=== PATIENT | male | born 1995 | race Caucasian/White ===

== ENCOUNTER 2018-10-26 21:43 | Emergency (ER) | payer BC ==
[2018-10-27] MEDS ORDERED: ACETAMINOPHEN TAB 500 MG TAB PO STA (00:32)
[2018-10-27] MEDS ORDERED: IBUPROFEN 600 MG TAB PO STA (00:32)
--- NOTE | 2018-10-27 01:07 | XR ---
EXAMINATION TYPE: XR chest 2V DATE OF EXAM: 10/27/2018 COMPARISON: EXAMINATION TYPE: XR chest 2V DATE OF EXAM: 10/27/2018 COMPARISON: NONE HISTORY: Cough TECHNIQUE: 2 views FINDINGS: Heart and mediastinum are normal. Lungs are clear. Diaphragm is normal. Bony thorax is inta ct pulmonary vascularity is normal. IMPRESSION: Normal chest
--- NOTE | 2018-10-27 01:12 | ED ---
URI HPI - General Source: patient, RN notes reviewed, old records reviewed Mode of arrival: ambulatory Limitations: no limitations <Ayah Klein - Last Filed: 10/29/18 01:29> <Angélica Forrest P - Last Filed: 10/31/18 01:56> - General Chief Complaint: Upper Respiratory Infection Stated Complaint: Cough Time Seen by Provider: 10/27/18 00:29 - History of Present Illness Initial Comments: Patient is a 23 year old male with 3 days of headache, sore throat, body aches , cough, and congestion. PAtient reports high fever today and felt dizzy. He has had no vomiting. No history of sick contacts he is aware of. HE is generally healthy. (Ayah Klein) - Related Data Previous Rx's Medication Instructions Recorded Azithromycin [Zithromax Z-pack] 0 mg PO DIRECTED #6 tab 09/06/15 Cetirizine HCl/Pseudoephedrine 1 each PO BID #30 tab.er.12h 09/06/15 [Zyrtec-D Tablet] Acetaminophen Tab [Tylenol Tab] 1,000 mg PO Q6HR #30 tablet 10/27/18 Ibuprofen 600 mg PO TID #20 tablet 10/27/18 Promethazine/Dextromethorphan 5 ml PO TID #120 ml 10/27/18 [Phenergan DM Syrup] Allergies Allergy/AdvReac Type Severity Reaction Status Date / Time amoxicillin trihydrate Allergy Vomiting Verified 10/26/18 22:07 [From Augmentin] potassium clavulanate Allergy Vomiting Verified 10/26/18 22:07 [From Augmentin] Review of Systems ROS Other: All systems not noted in ROS Statement are negative. <Ayah Klein - Last Filed: 10/29/18 01:29> ROS Other: All systems not noted in ROS Statement are negative. <Angélica Forrest P - Last Filed: 10/31/18 01:56> ROS Statement: Those systems with pertinent positive or pertinent negative responses have been documented in the HPI. Past Medical History Past Medical History: No Reported History History of Any Multi-Drug Resistant Organisms: None Reported Additional Past Surgical History / Comment(s): WRIST SURGERY Past Psychological History: No Psychological Hx Reported Smoking Status: Former smoker Past Alcohol Use History: None Reported Past Drug Use History: None Reported <Ayah Klein - Last Filed: 10/29/18 01:29> General Exam Limitations: no limitations General appearance: alert, in no apparent distress Head exam: Present: atraumatic, normocephalic, normal inspection Eye exam: Present: normal appearance, PERRL, EOMI. Absent: scleral icterus, conjunctival injection, periorbital swelling ENT exam: Present: normal exam. Absent: normal oropharynx (erythematous oropharynx. ) Neck exam: Present: normal inspection. Absent: tenderness, meningismus, lymphadenopathy Respiratory exam: Present: normal lung sounds bilaterally, other (ry cough). Absent: respiratory distress, wheezes, rales, rhonchi, stridor Cardiovascular Exam: Present: regular rate, normal rhythm, tachycardia, normal heart sounds. Absent: systolic murmur, diastolic murmur, rubs, gallop, clicks GI/Abdominal exam: Present: soft, normal bowel sounds. Absent: distended, tenderness, guarding, rebound, rigid Extremities exam: Present: normal inspection, full ROM, normal capillary refill. Absent: tenderness, pedal edema, joint swelling, calf tenderness Back exam: Present: normal inspection Neurological exam: Present: alert, oriented X3, CN II-XII intact Psychiatric exam: Present: normal affect, normal mood <Ayah Klein - Last Filed: 10/29/18 01:29> <Angélica Forrest P - Last Filed: 10/31/18 01:56> - General Exam Comments Initial Comments: 23 year old male, no distress. (Ayah Klein) Vital Signs 10/26/18 10/27/18 10/27/18 22:04 00:48 01:00 Temperature 101.9 F H 98.9 F 99.0 F Pulse Rate 129 H 101 H 94 Respiratory 20 18 20 Rate Blood Pressure 149/86 142/78 133/73 O2 Sat by Pulse 96 98 95 Oximetry Medical Decision Making - Radiology Data Radiology results: report reviewed <Ayah Klein - Last Filed: 10/29/18 01:29> <Angélica Forrest P - Last Filed: 10/31/18 01:56> - Medical Decision Making 23 year old with 3 days of cough, sore throat, headache and body aches. PAtient given motrin and tylenol, and 2 large glasses of water in ED. Patient CXR is normal. Lungs are clear. RApid strep is negative .Patient has positive flu A. Discussed supportive treatment.Given note for work. Discussed return parameters. (Ayah Klein) I was available for consultation in the emergency department. The history and physical exam were done by the midlevel provider. I was consulted for this patient's care. I reviewed the case with the midlevel provider and based on their presentation of the patient, I agree with the assessment, medical decision making and plan of care as documented. (Angélica Forrest) - Lab Data Lab Results 10/27/18 10/27/18 Range/Units 00:30 00:43 Influenza Type A RNA Detected H (Not Detectd) Influenza Type B (PCR) Not Detected (Not Detectd) Group A Strep Rapid Negative (Negative) - Radiology Data Normal CXR noted. Read by Dr. Sampson. (Ayah Klein) Disposition Is patient prescribed a controlled substance at d/c from ED?: No Time of Disposition: 01:10 <Ayah Klein - Last Filed: 10/29/18 01:29> <Angélica Forrest - Last Filed: 10/31/18 01:56> Clinical Impression: Influenza A Disposition: HOME SELF-CARE Condition: Good Instructions: Upper Respiratory Infection (ED) Additional Instructions: Patient is to have close follow up with primary care physician. Return to the emergency department if any alarming signs or symptoms occur. Prescriptions: Acetaminophen Tab [Tylenol Tab] 1,000 mg PO Q6HR #30 tablet Ibuprofen 600 mg PO TID #20 tablet Promethazine/Dextromethorphan [Phenergan DM Syrup] 5 ml PO TID #120 ml Referrals: None,Stated [Primary Care Provider] - 1-2 days Marti Irwin MD [STAFF PHYSICIAN] - 1-2 days
[2018-10-27 01:34] VITALS: BP 133/73; PULSE 94; RESP 20; TEMP 99
== END 2018-10-27 01:35 | disposition home or self-care (01) ==
LOC: EC 21:43
DX: J10.1 Influenza due to other identified influenza virus with other respiratory manifestations (principal); R00.0 Tachycardia, unspecified; Z87.891 Personal history of nicotine dependence; Z88.0 Allergy status to penicillin
CPT/HCPCS: 71046; 87081; 87430; 87502; 99284

== ENCOUNTER 2019-03-17 11:24 | Emergency (ER) | payer BC ==
[2019-03-17 11:33] VITALS: RESP 18; TEMP 98.4
--- NOTE | 2019-03-17 12:11 | XR ---
EXAMINATION TYPE: XR foot complete LT DATE OF EXAM: 03/17/2019 COMPARISON: None HISTORY: Fell down stairs pain TECHNIQUE: Three-view left foot FINDINGS: There appears to be a subtle fracture at the distal fifth metatarsal. No additional areas suspicious for fracture are evident. Soft tissues appear normal. Joint spaces are preserved. IMPRESSION: 1. Correlate for nondisplaced fracture distal fifth metatarsal.
--- NOTE | 2019-03-17 12:35 | ED ---
Lower Extremity Injury HPI - General Chief Complaint: Extremity Injury, Lower Stated Complaint: Foot injury Time Seen by Provider: 03/17/19 11:39 Source: patient, RN notes reviewed, old records reviewed Mode of arrival: ambulatory Limitations: no limitations - History of Present Illness Initial Comments: This 23-year-old male presents for his pharmacy with lateral left foot pain. Patient reports that he tripped over the stairs carrying his baby and twisted his foot. Patient states that he has no ankle pain. She denies any previous foot or ankle injuries. Patient denies any recent fever, chills, shortness of breath, chest pain, back pain, abdominal pain, nausea vomiting, numbness or tingling, dysuria or hematuria, constipation or diarrhea, headaches or visual changes, or any other current symptoms - Related Data Previous Rx's Medication Instructions Recorded Azithromycin [Zithromax Z-pack] 0 mg PO DIRECTED #6 tab 09/06/15 Cetirizine HCl/Pseudoephedrine 1 each PO BID #30 tab.er.12h 09/06/15 [Zyrtec-D Tablet] Acetaminophen Tab [Tylenol Tab] 1,000 mg PO Q6HR #30 tablet 10/27/18 Ibuprofen 600 mg PO TID #20 tablet 10/27/18 Promethazine/Dextromethorphan 5 ml PO TID #120 ml 10/27/18 [Phenergan DM Syrup] Acetaminophen with Codeine 1 tab PO Q6H PRN 3 Days #12 tab 03/17/19 [Tylenol w/codeine #3] Allergies Allergy/AdvReac Type Severity Reaction Status Date / Time amoxicillin trihydrate Allergy Vomiting Verified 03/17/19 11:32 [From Augmentin] potassium clavulanate Allergy Vomiting Verified 03/17/19 11:32 [From Augmentin] Review of Systems ROS Statement: Those systems with pertinent positive or pertinent negative responses have been documented in the HPI. ROS Other: All systems not noted in ROS Statement are negative. Past Medical History Past Medical History: No Reported History History of Any Multi-Drug Resistant Organisms: None Reported Additional Past Surgical History / Comment(s): WRIST SURGERY Past Psychological History: No Psychological Hx Reported Smoking Status: Former smoker Past Alcohol Use History: None Reported Past Drug Use History: None Reported General Exam - General Exam Comments Initial Comments: 23-year-old male. Alert and oriented. No distress. Limitations: no limitations General appearance: alert, in no apparent distress Head exam: Present: atraumatic, normocephalic, normal inspection Eye exam: Present: normal appearance, PERRL, EOMI. Absent: scleral icterus, conjunctival injection, periorbital swelling ENT exam: Present: normal exam, mucous membranes moist Neck exam: Present: normal inspection. Absent: tenderness, meningismus, lymphadenopathy Respiratory exam: Present: normal lung sounds bilaterally. Absent: respiratory distress, wheezes, rales, rhonchi, stridor Cardiovascular Exam: Present: regular rate, normal rhythm, normal heart sounds. Absent: systolic murmur, diastolic murmur, rubs, gallop, clicks GI/Abdominal exam: Present: soft, normal bowel sounds. Absent: distended, tenderness, guarding, rebound, rigid Extremities exam: Present: normal inspection, full ROM, tenderness (Is tenderness over the lateral fifth metatarsal, tenderness over the distal portion. No bruising. Minor swelling noted. Normal sensation over her toes. Dorsalis pedis pulse 2+.), normal capillary refill. Absent: pedal edema, joint swelling, calf tenderness Back exam: Present: normal inspection Neurological exam: Present: alert, oriented X3, CN II-XII intact Psychiatric exam: Present: normal affect, normal mood Skin exam: Present: warm, dry, intact, normal color. Absent: rash Course Vital Signs 03/17/19 11:31 Temperature 98.4 F Pulse Rate 103 H Respiratory 18 Rate Blood Pressure 148/84 O2 Sat by Pulse 99 Oximetry Procedures - Orthopedic Splinting/Casting Injury #1 Side: left Lower Extremity Injury Location: foot Lower Extremity Immobilizer: posterior splint Other Orthopedic Equipment: crutches Additional Comments: Patient was reevaluated neurologically and vascularly intact. Medical Decision Making - Medical Decision Making Patient's 23-year-old male presents today with lateral fifth metatarsal pain after twisting his foot was going on the stairs. He has no ankle pain. Patient's x-ray shows evidence of a nondisplaced fracture of the distal fifth metatarsal. Patient has full motion of the toes, normal sensation distally. Patient was placed in a posterior splint, given referral for orthopedic. Discussed Motrin Tylenol resting icing for pain. - Radiology Data Radiology results: report reviewed Correlate for nondisplaced fracture of the distal fifth metatarsal. Disposition Clinical Impression: Fracture of fifth metatarsal bone Disposition: HOME SELF-CARE Condition: Good Instructions (If sedation given, give patient instructions): Foot Fracture in Adults (ED) Additional Instructions: Patient is to remain in the boot and cast. Nonweightbearing. Follow-up with the Patient a doctor on Wednesday.. Take the pain medicine as prescribed use Motrin time. Rest, ice, and elevate the foot. Prescriptions: Acetaminophen with Codeine [Tylenol w/codeine #3] 1 tab PO Q6H PRN 3 Days #12 tab PRN Reason: Pain Is patient prescribed a controlled substance at d/c from ED?: Yes If prescribed controlled substance>3 days was MAPS reviewed?: Prescribed <3 Days If opioid is for acute pain is fill amount 7 days or less?: Yes If Rx opioid, was Start Talking consent form obtained?: Yes Referrals: None,Stated [Primary Care Provider] - 1-2 days Jhonny Mckeon DO [Medical Doctor] - 1-2 days Time of Disposition: 12:32
[2019-03-17 13:31] VITALS: BP 138/79; PULSE 98
== END 2019-03-17 13:30 | disposition home or self-care (01) ==
LOC: EC 11:24
DX: S92.355A Nondisplaced fracture of fifth metatarsal bone, left foot, initial encounter for closed fracture (principal); Z87.891 Personal history of nicotine dependence; Z88.0 Allergy status to penicillin; W22.8XXA Striking against or struck by other objects, initial encounter; Y92.009 Unspecified place in unspecified non-institutional (private) residence as the place of occurrence of the external cause
CPT/HCPCS: 29515; 99284

== ENCOUNTER 2020-06-02 23:35 | Emergency (ER) | payer BC ==
[2020-06-02 23:40] VITALS: RESP 18
--- NOTE | 2020-06-03 00:26 | XR ---
EXAMINATION TYPE: XR foot complete RT DATE OF EXAM: 06/03/2020 COMPARISON: NONE HISTORY: Rolled ankle. Foot pain. TECHNIQUE: 3 views FINDINGS: Metatarsals appear intact. The toes appear intact. I see no fracture nor dislocation. IMPRESSION: Negative right foot exam.
--- NOTE | 2020-06-03 00:27 | XR ---
EXAMINATION TYPE: XR ankle complete RT DATE OF EXAM: 06/03/2020 COMPARISON: NONE HISTORY: Pain TECHNIQUE: 3 views FINDINGS: Ankle mortise is anatomic. I see no fracture nor dislocation. Joint spaces are fairly trisha l. IMPRESSION: Negative right ankle exam.
--- NOTE | 2020-06-03 00:40 | ED ---
Lower Extremity Injury HPI - General Chief Complaint: Extremity Injury, Lower Stated Complaint: R Foot Injury Time Seen by Provider: 06/02/20 23:46 Source: patient Mode of arrival: ambulatory Limitations: no limitations - History of Present Illness Initial Comments: Neck is a 24-year-old male presents ER today for evaluation of right ankle and foot pain. Patient reports he is walking in the [place] when he stepped on a hole and rolled his ankle inward. Patient reports he's been ambulatory since that time has pain. Pain is primary in the right lateral foot. No history of previous fractures or surgeries in this foot. - Related Data Previous Rx's Medication Instructions Recorded Azithromycin [Zithromax Z-pack] 0 mg PO DIRECTED #6 tab 09/06/15 Cetirizine HCl/Pseudoephedrine 1 each PO BID #30 tab.er.12h 09/06/15 [Zyrtec-D Tablet] Acetaminophen Tab [Tylenol Tab] 1,000 mg PO Q6HR #30 tablet 10/27/18 Ibuprofen 600 mg PO TID #20 tablet 10/27/18 Promethazine/Dextromethorphan 5 ml PO TID #120 ml 10/27/18 [Phenergan DM Syrup] Acetaminophen with Codeine 1 tab PO Q6H PRN 3 Days #12 tab 03/17/19 [Tylenol w/codeine #3] Allergies Allergy/AdvReac Type Severity Reaction Status Date / Time amoxicillin trihydrate Allergy Vomiting Verified 06/02/20 23:40 [From Augmentin] potassium clavulanate Allergy Vomiting Verified 06/02/20 23:40 [From Augmentin] Review of Systems ROS Statement: Those systems with pertinent positive or pertinent negative responses have been documented in the HPI. ROS Other: All systems not noted in ROS Statement are negative. Past Medical History Past Medical History: No Reported History History of Any Multi-Drug Resistant Organisms: None Reported Past Surgical History: Orthopedic Surgery Additional Past Surgical History / Comment(s): WRIST SURGERY Past Psychological History: No Psychological Hx Reported Smoking Status: Current every day smoker Past Alcohol Use History: None Reported Past Drug Use History: None Reported General Exam - General Exam Comments Initial Comments: Physical Exam GENERAL: Patient is well-developed and well-nourished. Patient is nontoxic and well-hydrated and is in no distress. HENT: Normocephalic, Atraumatic. EYES: PERRL, EOMI PULMONARY: Unlabored respirations. CARDIOVASCULAR: RRR Warm and well perfused extremities ABDOMEN: Non-distended SKIN: No rashes or bruising : Deferred NEUROLOGIC: Alert and oriented Normal speech Normal gait MUSCULOSKELETAL: Moving all extremities Mild swelling in the right lateral foot and ankle with tenderness to the ATF ligament No obvious deformity, DP and PT pulses intact PSYCHIATRIC: No SI/HI Limitations: no limitations Course Vital Signs 06/02/20 06/03/20 23:38 01:00 Temperature 98.2 F 98.5 F Pulse Rate 119 H 106 H Respiratory 18 18 Rate Blood Pressure 132/77 151/95 O2 Sat by Pulse 97 97 Oximetry Medical Decision Making - Medical Decision Making The patient was seen and evaluated history is obtained from patient and sent history and physical exam are concerning for an ankle sprain however x-rays will be ordered to rule out fracture or fracture of the proximal fifth metatarsal X-rays were reviewed by me I see no obvious fractures or dislocations, icterus were reviewed by radiologist who agrees Patient was placed in an Aircast for ankle support, patient remained neurovascularly intact after splinting Rest, ice, compression and elevation was discussed with the patient, alternating Tylenol Motrin for pain Patient was given a work note for 3 days duration, advised to follow-up with primary care physician by the end of the week or follow up with orthopedics for any persistent pain All questions pertaining care were answered return parameters were discussed patient was discharged home in stable condition Disposition Clinical Impression: Ankle sprain Disposition: HOME SELF-CARE Condition: Stable Instructions (If sedation given, give patient instructions): Ankle Sprain (ED) Is patient prescribed a controlled substance at d/c from ED?: No Referrals: None,Stated [Primary Care Provider] - 1-2 days Tanvir Rocha MD [STAFF PHYSICIAN] - 1-2 days
[2020-06-03 01:01] VITALS: BP 151/95; PULSE 106; TEMP 98.5
== END 2020-06-03 01:01 | disposition home or self-care (01) ==
LOC: EC 23:35
DX: S93.401A Sprain of unspecified ligament of right ankle, initial encounter (principal); F17.200 Nicotine dependence, unspecified, uncomplicated; Z88.0 Allergy status to penicillin; Z88.1 Allergy status to other antibiotic agents; X50.1XXA Overexertion from prolonged static or awkward postures, initial encounter; Y93.01 Activity, walking, marching and hiking
CPT/HCPCS: 29515; 99283

== ENCOUNTER → 2020-07-02 | Outpatient (CLI) | payer BC ==
--- NOTE | 2020-07-02 11:05 | CT ---
EXAMINATION TYPE: CT foot RT wo con DATE OF EXAM: 07/02/2020 COMPARISON: 06/02/2020 right foot x-ray HISTORY: Right foot pain, sprain CT DLP: Not provided mGycm Automated exposure control for dose reduction was used. TECHNIQUE: Axial images 2 mm thick sections. Reconstructed images in the coronal and sagittal plane. Three-D reconstructed images performed by the technologist on a separate computer are reviewed. FINDINGS: No acute fractures are evident. Joint spaces appear preserved. There is varus deformity of the distal phalanx of the second through fifth digits. Soft tissue windows are reviewed. No significant soft tissue swelling is evident. No suspicious tendo n or ligament abnormality is identified by CT. MRI may be more sensitive for soft tissue injury. IMPRESSION: NO ACUTE OSSEOUS ABNORMALITY RIGHT FOOT.
== END | disposition home or self-care (01) ==
LOC: RADCTMAIN 07:09
PROVIDERS: ATTEND Physician Assistant
DX: M79.671 Pain in right foot (principal); S93.691D Other sprain of right foot, subsequent encounter

== ENCOUNTER 2023-02-15 02:30 | Emergency (ER) | payer BC ==
[2023-02-15 02:37] VITALS: BP 162/70; PULSE 106; RESP 16; TEMP 97.6
[2023-02-15] MEDS ORDERED: IBUPROFEN 600 MG TAB PO STA (02:42)
--- NOTE | 2023-02-15 02:45 | ED ---
Lower Extremity Injury HPI - General Chief Complaint: Extremity Injury, Lower Stated Complaint: Right Foot Injury Time Seen by Provider: 02/15/23 02:39 Source: patient Mode of arrival: ambulatory Limitations: no limitations - History of Present Illness Initial Comments: Patient is a 27-year-old male presenting with chief complaint of right foot pain. Patient reports that he dropped a pipe wrench onto the foot 2 days ago. He has had continuing pain and developed some bruising. Pain is located mainly at the distal portion of the foot. No pain to the ankle. He has full range of motion and sensation. No obvious deformity. - Related Data Previous Rx's Medication Instructions Recorded Azithromycin [Zithromax Z-pack (6 0 mg PO DIRECTED #6 tab 09/06/15 tabs)] Cetirizine HCl/Pseudoephedrine 1 each PO BID #30 tab.er.12h 09/06/15 [Zyrtec-D Tablet] Acetaminophen Tab [Tylenol Tab] 1,000 mg PO Q6HR #30 tablet 10/27/18 Ibuprofen 600 mg PO TID #20 tablet 10/27/18 Promethazine/Dextromethorphan 5 ml PO TID #120 ml 10/27/18 [Phenergan DM Syrup] Acetaminophen with Codeine 1 tab PO Q6H PRN 3 Days #12 tab 03/17/19 [Tylenol w/codeine #3] Allergies Allergy/AdvReac Type Severity Reaction Status Date / Time amoxicillin trihydrate Allergy Vomiting Verified 06/02/20 23:40 [From Augmentin] potassium clavulanate Allergy Vomiting Verified 06/02/20 23:40 [From Augmentin] Review of Systems ROS Statement: Those systems with pertinent positive or pertinent negative responses have been documented in the HPI. ROS Other: All systems not noted in ROS Statement are negative. Past Medical History Past Medical History: No Reported History History of Any Multi-Drug Resistant Organisms: None Reported Past Surgical History: Orthopedic Surgery Additional Past Surgical History / Comment(s): WRIST SURGERY Past Psychological History: No Psychological Hx Reported Smoking Status: Current every day smoker Past Alcohol Use History: Occasional Past Drug Use History: None Reported General Exam Limitations: no limitations General appearance: alert, in no apparent distress Head exam: Present: atraumatic, normocephalic, normal inspection Eye exam: Present: normal appearance, EOMI. Absent: periorbital swelling Neck exam: Present: normal inspection, full ROM Right Foot/Toe exam: Present: full ROM, tenderness, swelling, ecchymosis Neurovascular tendon exam: Present: no vascular compromise Neurological exam: Present: alert, oriented X3, CN II-XII intact Psychiatric exam: Present: normal affect, normal mood Skin exam: Present: warm, dry, intact, normal color. Absent: rash Course Vital Signs 02/15/23 02:32 Temperature 97.6 F Pulse Rate 106 H Respiratory 16 Rate Blood Pressure 162/70 O2 Sat by Pulse 98 Oximetry Medical Decision Making - Medical Decision Making Was pt. sent in by a medical professional or institution (, PA, [employer] MAKER HELPER, urgent care, hospital, or long-term...) When possible be specific @ -No Did you speak to anyone other than the patient for history (EMS, parent, family, police, friend...)? What history was obtained from this source @ -No Did you review nursing and triage notes (agree or disagree)? Why? @ -I reviewed and agree with nursing and triage notes Were old charts reviewed (outside hosp., previous admission, EMS record, old EKG, old radiological studies, urgent care reports/EKG's, long-term records)? Report findings @ -No old charts were reviewed Differential Diagnosis (chest pain, altered mental status, abdominal pain women, abdominal pain men, vaginal bleeding, weakness, fever, dyspnea, syncope, headache, dizziness, GI bleed, back pain, seizure, CVA, palpatations, mental health, musculoskeletal)? @ -Differential Musculoskeletal Muscular strain, contusion, ligament sprain, fracture, arthritis, septic arthritis, bursitis, cellulitis, muscle spasm, nerve compression, DVT, arterial occlusion, herpes zoster, electrolyte abnormality, tumor.... This is not meant to be in all inclusive list EKG interpreted by me (3pts min.). @ -As above X-rays interpreted by me (1pt min.). @ -X-ray shows no evidence of fracture or dislocation CT interpreted by me (1pt min.). @ -None done U/S interpreted by me (1pt. min.). @ -None done What testing was considered but not performed or refused? (CT, X-rays, U/S, labs)? Why? @ -None What meds were considered but not given or refused? Why? @ -None Did you discuss the management of the patient with other professionals (professionals i.e. DrLiv, PA, [employer]KER HELPER, lab, RT, psych nurse, social media strategist, implementation services analyst, teacher, disbursing officer, caseworker protective services)? Give summary @ -No Was smoking cessation discussed for >3mins.? @ -No Was critical care preformed (if so, how long)? @ -No Were there social determinants of health that impacted care today? How? (Homelessness, low income, unemployed, alcoholism, drug addiction, transportation, low edu. Level, literacy, decrease access to med. care, nursing home, rehab)? @ -No Was there de-escalation of care discussed even if they declined (Discuss DNR or withdrawal of care, Hospice)? DNR status @ -No What co-morbidities impacted this encounter? (DM, HTN, Smoking, COPD, CAD, Cancer, CVA, ARF, Chemo, Hep., AIDS, mental health diagnosis, sleep apnea, mo rbid obesity)? @ -None Was patient admitted / discharged? Hospital course, mention meds given and route, prescriptions, significant lab abnormalities, going to OR and other pertinent info. @ -Discharge. Patient is a 27-year-old male presenting with chief complaint of right foot injury. Physical examination shows bruising, neurovascularly intact. X-ray shows no evidence of fracture or dislocation. Patient is educated on supportive management. Follow-up with PCP. Report back to ER with any new or worsening symptoms. Discussed return parameters and answered all questions. Patient conveyed verbal understanding and agreed to the plan. I discussed this case in detail with my attending Dr. Guallpa Undiagnosed new problem with uncertain prognosis? @ -No Drug Therapy requiring intensive monitoring for toxicity (Heparin, Nitro, Insulin, Cardizem)? @ -No Were any procedures done? @ -No Diagnosis/symptom? @ -Foot sprain Acute, or Chronic, or Acute on Chronic? @ -Acute Uncomplicated (without systemic symptoms) or Complicated (systemic symptoms)? @ -Uncomplicated Side effects of treatment? @ -No Exacerbation, Progression, or Severe Exacerbation? @ -No Poses a threat to life or bodily function? How? (Chest pain, [place], [place], pneumonia, PE, COPD, DKA, ARF, appy, cholecystitis, CVA, Diverticulitis, Homicidal, Suicidal, threat to staff... and all critical care pts) @ -No Disposition Clinical Impression: Foot sprain Disposition: HOME SELF-CARE Condition: Good Instructions (If sedation given, give patient instructions): Foot Sprain (ED) Additional Instructions: Follow up with PCP. Report back to ER with any new or worsening symptoms. Take Motrin and Tylenol as needed for pain control. Rest, ice, compress, and elevate the foot. Is patient prescribed a controlled substance at d/c from ED?: No Referrals: None,Stated [Primary Care Provider] - 1-2 days Time of Disposition: 03:43
--- NOTE | 2023-02-15 04:46 | XR ---
EXAMINATION TYPE: XR foot complete RT DATE OF EXAM: 02/15/2023 CLINICAL HISTORY: Pain after injury. TECHNIQUE: Frontal, lateral, and oblique images of the right foot are obtained. COMPARISON: Prior CT and x-ray June 02, 2020 FINDINGS: There is no acute fracture/dislocation evident in the right foot. The joint spaces in the right foot remain within normal limits. The overlying soft tissue appears unremarkable. IMPRESSION: There is no acute fracture or dislocation in the right foot. No significant change from prior.
== END 2023-02-15 03:47 | disposition home or self-care (01) ==
LOC: EC 02:30
DX: S93.601A Unspecified sprain of right foot, initial encounter (principal); F17.200 Nicotine dependence, unspecified, uncomplicated; Z88.0 Allergy status to penicillin; Z88.1 Allergy status to other antibiotic agents; W20.8XXA Other cause of strike by thrown, projected or falling object, initial encounter
CPT/HCPCS: 99283